=== PATIENT | male | born 1990 | race Caucasian/White ===

== ENCOUNTER 2017-10-16 14:19 | Emergency (ER) | payer OTHER ==
[~2017-10-16] VITALS: Ht 180.3 cm; Wt 72.6 kg
[~2017-10-16 14:19] MED LIST: AUGMENTIN 875875 MG PO; CATAFLAM50 MG PO; LEVAQUIN750 MG PO; MOTRIN800 MG PO; NKHM; PREDNISONE50 MG PO; VICODIN 5/500 505 MG PO; ZOVIRAX800 MG PO
[2017-10-16 14:39] VITALS: BP 110/67
[2017-10-16] MEDS ORDERED: ZOFRAN ODT4 MG SL (15:18)
== END 2017-10-16 15:19 | disposition home or self-care (01) ==
LOC: ED 14:19
DX: A08.4 Viral intestinal infection, unspecified (principal); F17.200 Nicotine dependence, unspecified, uncomplicated

== ENCOUNTER 2018-03-15 19:35 | Emergency (ER) | payer OTHER ==
[~2018-03-15] VITALS: Ht 182.8 cm; Wt 88.5 kg
[~2018-03-15 19:35] MED LIST changes: +ZOFRAN ODT4 MG SL
[2018-03-15 19:40] VITALS: BP 121/67
[2018-03-15 20:14] LABS: BASO # 0.1 10*3/uL (0.0-0.1); BASO % 0.7 % (0.0-1.0); EOS # 0.5 10*3/uL (0.0-0.4); EOS % 3.9 % (1.0-4.0); HEMATOCRIT 39.2 % (42.0-52.0); HEMOGLOBIN 12.6 g/dl (14.0-18.0); LYMPH # 3.2 10*3/uL (1.3-4.4); LYMPH % 26.9 % (27.0-41.0); MEAN CELL VOLUME 94.2 fl (80.0-94.0); MEAN CORPUSCULAR HGB 30.3 pg (27.0-31.0); MEAN CORPUSCULAR HGB CONC 32.1 g/dl (33.0-37.0); MEAN PLATELET VOLUME 9.2 fl (9.6-12.3); MONO % 8.5 % (3.0-9.0); NEUT # 7.2 10*3/uL (2.3-7.9); NEUT % 59.7 % (47.0-73.0); PLATELET COUNT AUTOMATED 376 10*3/uL (130-400); RED BLOOD COUNT 4.16 10*6/uL (4.50-5.90); RED CELL DISTRI WIDTH 12.3 % (0-14.5)
[2018-03-15 20:36] LABS: ALKALINE PHOSPHATASE 76 U/L (45-117); BUN 11 mg/dl (7-24); CHLORIDE 108 mmol/L (98-107); CREATININE 1.02 mg/dL (0.70-1.30); POTASSIUM 3.5 mmol/L (3.5-5.1); SGOT/AST 12 IU/L (3-35); SGPT/ALT 27 U/L (12-78); SODIUM 142 mmol/L (136-145); TOTAL PROTEIN 7.2 gm/dL (6.4-8.2)
== END 2018-03-15 21:33 | disposition home or self-care (01) ==
LOC: ED 19:35
PROVIDERS: Student in an Organized Health Care Education/Training Program
DX: R07.81 Pleurodynia (principal); R06.02 Shortness of breath

== ENCOUNTER 2018-10-24 11:12 | Emergency (ER) | payer OTHER ==
[~2018-10-24] VITALS: Ht 175.2 cm; Wt 91.2 kg
[2018-10-24 11:13] VITALS: BP 133/82
[2018-10-24] MEDS ORDERED: AMOXICILLIN500 M2 PO (12:01)
[2018-10-24] MEDS ORDERED: NAPROSYN500 MG PO (12:01)
== END 2018-10-24 12:15 | disposition home or self-care (01) ==
LOC: ED 11:12
DX: K04.7 Periapical abscess without sinus (principal)